=== PATIENT | female | born 1985 | race Caucasian/White ===

== ENCOUNTER 2017-12-27 04:04 | Emergency (ER) | payer SELFPAY ==
[2017-12-27] MEDS ORDERED: NS(*) 0.9% 1000 ML BAG 1,000 ML IV ONE ×2 (04:06→06:30)
[2017-12-27] MEDS ORDERED: ONDANSETRON 4 MG/2 ML VIAL IVP ONE (04:10)
[2017-12-27] MEDS: PROMETHAZINE 25 MG/ML 1 ML AMP IVP ONE ×2 (04:10→04:29)
--- NOTE | 2017-12-27 04:17 | ER Report ---
History and Physical Time Seen By MD: 04:10 HPI/JOSEPH CHIEF COMPLAINT: Vomiting HISTORY OF PRESENT ILLNESS: 32-year-old female brought in by EMS from home with continued vomiting. Patient states she had too many beers last night. Patient in route to the hospital soiled herself with incontinence of stool. Patient denies exposure to ill contacts, recent travel or consumption of bad food. REVIEW OF SYSTEMS: Respiratory: No cough, no dyspnea. Cardiovascular: No chest pain, no palpitations. Gastrointestinal: As above Musculoskeletal: No back pain. Allergies: Coded Allergies: No Known Drug Allergies (Unverified , 12/27/17) Home Meds Active Scripts Ondansetron (ZOFRAN ODT) 4 Mg Tab.rapdis, 4 MG PO every 6 hours Y for NAUSEA/ VOMITING, #12 TAB TAKE 1 TABLET BY MOUTH EVERY 12 HOURS Prov:ROSALINDA SESAY DO 12/27/17 Past Medical/Surgical History Unremarkable Reviewed Nurses Notes: Yes Old Medical Records Reviewed: Yes Constitutional Vital Sign - Last 24 Hours 12/27/17 12/27/17 12/27/17 12/27/17 04:04 04:20 04:29 04:34 Temp 97.9 Pulse 110 87 87 Resp 16 B/P (MAP) 149/101 129/118 (122) 96/51 (66) Pulse Ox 100 100 100 O2 Delivery Room Air 12/27/17 12/27/17 12/27/17 12/27/17 04:36 04:43 04:49 05:04 Pulse 84 85 B/P (MAP) 93/62 (72) 91/60 (70) Pulse Ox 99 100 12/27/17 12/27/17 12/27/17 12/27/17 05:05 05:09 05:14 05:24 Temp 97.4 Pulse 72 71 B/P (MAP) 95/51 (66) Pulse Ox 100 93 12/27/17 12/27/17 12/27/17 12/27/17 05:27 05:32 05:37 05:45 Pulse 70 74 78 B/P (MAP) 89/56 (67) 92/52 (65) Pulse Ox 98 99 12/27/17 12/27/17 12/27/17 12/27/17 05:51 05:52 05:57 06:00 Pulse 82 84 B/P (MAP) 90/52 (65) 86/46 (59) Pulse Ox 97 91 12/27/17 12/27/17 12/27/17 06:04 06:12 06:27 Pulse 90 90 B/P (MAP) 91/46 (61) Pulse Ox 93 91 Physical Exam General Appearance: The patient is alert, has no immediate need for airway protection and no current signs of toxicity.. Vital signs stable, afebrile, pulse ox normal HEENT: Pupils equal and round no injection. Oropharynx without trauma, odor of emesis and alcohol Respiratory: Chest is non tender, lungs are clear to auscultation. Cardiac: regular rate and rhythm Gastrointestinal: Abdomen is soft mild epigastric tenderness, no masses, bowel sounds normal. Musculoskeletal: Neck: Neck is supple and non tender. Extremities have full range of motion and are non tender. Skin: No rashes or lesions. DIFFERENTIAL DIAGNOSIS: After history and physical exam differential diagnosis was considered for abdominal pain including but not limited to appendicitis, cholecystitis, gastritis, food poisoning, gastroenteritis, viral syndrome and urinary tract infection. Medical Decision Making Data Points Result Diagram: 12/27/17 0419 12/27/17 0419 Laboratory Hematology Test 12/27/17 04:19 Red Blood Count 4.95 M/uL (4.17-5.56) Mean Corpuscular Volume 87.0 fL (80.0-96.0) Mean Corpuscular Hemoglobin 30.5 pg (26.0-33.0) Mean Corpuscular Hemoglobin Concent 35.1 g/dL (32.0-36.0) Red Cell Distribution Width 13.4 % (11.5-14.5) Mean Platelet Volume 6.0 fL (7.2-11.1) Neutrophils (%) (Auto) 79.3 % (39.4-72.5) Lymphocytes (%) (Auto) 14.4 % (17.6-49.6) Monocytes (%) (Auto) 3.4 % (4.1-12.4) Eosinophils (%) (Auto) 0.8 % (0.4-6.7) Basophils (%) (Auto) 2.1 % (0.3-1.4) Nucleated RBC Relative Count (auto) 0.0 /100WBC Neutrophils # (Auto) 5.9 K/uL (2.0-7.4) Lymphocytes # (Auto) 1.1 K/uL (1.3-3.6) Monocytes # (Auto) 0.3 K/uL (0.3-1.0) Eosinophils # (Auto) 0.1 K/uL (0.0-0.5) Basophils # (Auto) 0.2 K/uL (0.0-0.1) Nucleated RBC Absolute Count (auto) 0.00 K/uL Sodium Level 143 mmol/L (137-145) Potassium Level 3.4 mmol/L (3.5-5.0) Chloride Level 107 mmol/L (98-107) Carbon Dioxide Level 15 mmol/L (22-31) Blood Urea Nitrogen 13 mg/dl (7-18) Creatinine 0.70 mg/dl (0.52-1.04) Glomerular Filtration Rate Calc > 60.0 Random Glucose 126 mg/dl (75-110) Calcium Level 9.2 mg/dl (8.4-10.2) Total Bilirubin 0.2 mg/dl (0.2-1.3) Aspartate Amino Transf (AST/SGOT) 24 U/L (0-35) Alanine Aminotransferase (ALT/SGPT) 21 U/L (0-56) Alkaline Phosphatase 60 U/L (0-126) Total Protein 7.7 g/dl (6.3-8.2) Albumin 5.0 g/dl (3.5-5.0) Amylase Level 55 U/L (0-110) Lipase 85 U/L (23-300) Human Chorionic Gonadotropin, Qual Negative (NEGATIVE) Serum Alcohol 156 mg/dl Chemistry Test 12/27/17 04:19 White Blood Count 7.5 k/uL (4.5-11.0) Red Blood Count 4.95 M/uL (4.17-5.56) Hemoglobin 15.1 g/dL (12.0-16.0) Hematocrit 43.1 % (34.0-47.0) Mean Corpuscular Volume 87.0 fL (80.0-96.0) Mean Corpuscular Hemoglobin 30.5 pg (26.0-33.0) Mean Corpuscular Hemoglobin Concent 35.1 g/dL (32.0-36.0) Red Cell Distribution Width 13.4 % (11.5-14.5) Platelet Count 306 K/uL (150-450) Mean Platelet Volume 6.0 fL (7.2-11.1) Neutrophils (%) (Auto) 79.3 % (39.4-72.5) Lymphocytes (%) (Auto) 14.4 % (17.6-49.6) Monocytes (%) (Auto) 3.4 % (4.1-12.4) Eosinophils (%) (Auto) 0.8 % (0.4-6.7) Basophils (%) (Auto) 2.1 % (0.3-1.4) Nucleated RBC Relative Count (auto) 0.0 /100WBC Neutrophils # (Auto) 5.9 K/uL (2.0-7.4) Lymphocytes # (Auto) 1.1 K/uL (1.3-3.6) Monocytes # (Auto) 0.3 K/uL (0.3-1.0) Eosinophils # (Auto) 0.1 K/uL (0.0-0.5) Basophils # (Auto) 0.2 K/uL (0.0-0.1) Nucleated RBC Absolute Count (auto) 0.00 K/uL Glomerular Filtration Rate Calc > 60.0 Calcium Level 9.2 mg/dl (8.4-10.2) Total Bilirubin 0.2 mg/dl (0.2-1.3) Aspartate Amino Transf (AST/SGOT) 24 U/L (0-35) Alanine Aminotransferase (ALT/SGPT) 21 U/L (0-56) Alkaline Phosphatase 60 U/L (0-126) Total Protein 7.7 g/dl (6.3-8.2) Albumin 5.0 g/dl (3.5-5.0) Amylase Level 55 U/L (0-110) Lipase 85 U/L (23-300) Human Chorionic Gonadotropin, Qual Negative (NEGATIVE) Serum Alcohol 156 mg/dl Toxicology Test 12/27/17 04:19 Serum Alcohol 156 mg/dl ED Course/Re-evaluation Clinical Indication for ER IV: Hydration, IV Access ED Course Patient was admitted to an examination room. H&P was done. The differential diagnoses was considered. On clinical examination. Patient has a benign nonsurgical abdomen. Her diagnostic studies are unremarkable. Her blood alcohol returns at 156. Her symptoms are controlled with IV fluid hydration and Zofran 8 mg IV. Patient was noted to be hypotensive but aggressive fluid hydration improved her vital signs. Patient be discharged home on clear liquid diet and Zofran. Decision to Disposition Date: Dec 27, 2017 Decision to Disposition Time: 04:16 Depart Departure Latest Vital Signs Vital Signs Date Time Temp Pulse Resp B/P (MAP) Pulse Ox O2 Delivery O2 Flow Rate FiO2 12/27/17 06:27 90 91 12/27/17 06:04 91/46 (61) 12/27/17 05:05 97.4 12/27/17 04:20 16 Room Air Impression: Primary Impression: Alcohol poisoning Condition: Improved Disposition: HOME OR SELF-CARE New Scripts Ondansetron (ZOFRAN ODT) 4 Mg Tab.rapdis 4 MG PO every 6 hours Y for NAUSEA/VOMITING, #12 TAB TAKE 1 TABLET BY MOUTH EVERY 12 HOURS Prov: ROSALINDA SESAY DO 12/27/17 Patient Instructions: Abuse of Alcohol (ED), Clear Liquid Diet (ED) Additional Instructions: Follow clear liquid diet for 24 hours Follow-up with primary care if unimproved in 3-5 days. Problem Qualifiers Primary Impression: Alcohol poisoning Encounter type: initial encounter Injury intent: accidental or unintentional Qualified Codes: T51.91XA - Toxic effect of unspecified alcohol , accidental (unintentional), initial encounter ROSALINDA SESAY DO Dec 27, 2017 04:16
[2017-12-27 04:29] LABS: PLATELET COUNT, AUTOMATED 306 K/uL (150-450)
[2017-12-27] MEDS ORDERED: LR(*) 1000 ML BAG 1,000 ML IV PRN (04:55)
[2017-12-27] MEDS ORDERED: ONDA4TAB PO (05:24)
[2017-12-27] MEDS ORDERED: ONDANSETRON 4 MG ODT TH SL ONE (05:25)
[2017-12-27 07:00] VITALS: BP 92/46
== END 2017-12-27 09:09 | disposition home or self-care (01) ==
LOC: ER 04:07
DX: T51.91XA Toxic effect of unspecified alcohol, accidental (unintentional), initial encounter (principal)
CPT/HCPCS: 80320; 82150; 83690; 84703; 85025; 96361; 96374; 99283; J2405; J7030; J7120; 82040; 82247; 82310; 82374; 82435; 82565; 82947; 84075; 84132; 84155; 84295; 84450; 84460; 84520; J2550

== ENCOUNTER → 2017-12-27 | Outpatient (CLI) | payer SELFPAY ==
[~2017-12-27] MED LIST: ONDA4TAB PO
== END ==
LOC: AMB 03:47
PROVIDERS: ATTEND Nurse Practitioner
DX: R11.2 Nausea with vomiting, unspecified (principal); F10.221 Alcohol dependence with intoxication delirium
CPT/HCPCS: A0425; A0429